=== PATIENT | female | born 1935 | race Caucasian/White ===

== ENCOUNTER 2022-03-12 07:06 | Day surgery (SDC) | payer OTHER ==
[~2022-03-12] VITALS: Ht 165.1 cm; Wt 72.1 kg
[~2022-03-12 07:06] MED LIST: CEFAZOLIN SOD 1 GM in D5W 50 ML IV ONE
[2022-03-12] MEDS ORDERED: NS 50 ML BAG IV ONE (10:40)
[2022-03-12] MEDS ORDERED: BUPIVACAINE /PF 0.5% 30 ML VIAL ONE (10:40)
[2022-03-12] MEDS ORDERED: PROPOFOL 200MG/ 20ML VIAL (DIPRIVAN) IV ONE (10:40)
[2022-03-12] MEDS ORDERED: ceFAZolin SODIUM 1 GM VIAL ONE (10:40)
[2022-03-12] MEDS ORDERED: MEPERIDINE 100 MG INJ. 100 MG/ML VIAL ONE (10:40)
[2022-03-12] MEDS ORDERED: SEVOFLURANE 15 MIN GAS INH ONE (10:40)
[2022-03-12] MEDS ORDERED: NS IRRIG SOLN 1000 ML IR ONE (10:40)
[2022-03-12] MEDS ORDERED: LR 1,000 ML IV.SOLN IV ONE (10:40)
[2022-03-12] MEDS ORDERED: fentaNYL CITRATE/PF 100 MCG/2 ML AMP ONE (10:40)
[2022-03-12] MEDS ORDERED: METOCLOPRAMIDE HCL 10 MG/2 ML VIAL ONE (10:40)
[2022-03-12] MEDS ORDERED: ISOSULFAN BLUE 5 ML VIAL (LYMPHAZURIN) ONE (10:40)
[2022-03-12] MEDS ORDERED: MEPERIDINE HCL/PF 25 MG/ML DISP.SYRIN IVP PRN (11:30)
[2022-03-12] MEDS ORDERED: ONDANSETRON HCL 4 MG/2 ML VIAL IVP PRN ×2 (11:30→12:45)
[2022-03-12] MEDS ORDERED: HYDROmorphone 1 MG/ML INJ. CARTRIDGE IVP PRN (11:30)
[2022-03-12] MEDS ORDERED: KETOROLAC TROMETHAMINE 30 MG VIAL IVP PRN (11:30)
[2022-03-12] MEDS ORDERED: LR 1,000 ML IV SCH (11:30)
[2022-03-12] MEDS ORDERED: METOCLOPRAMIDE HCL 10 MG/2 ML VIAL IVP PRN (11:30)
[2022-03-12] MEDS ORDERED: HYDROcodone/ACETAMIN 5-325 MG TAB (NORCO/ VICODIN) PO PRN ×2 (12:45)
[2022-03-12] MEDS ORDERED: ACETAMINOPHEN 325 MG TABLET PO PRN (12:45)
[2022-03-12] MEDS ORDERED: CEFAZOLIN 1 GM IVPB PREMIX 50 ML IV SCH ×2 (15:00→22:00)
[2022-03-12 15:07] VITALS: BP_SYST 115
[2022-03-12 15:45] VITALS: BP_SYST 115
[2022-03-12] MEDS: D5/0.45 NS 1,000 ML IV SCH ×2 (16:50→21:03)
[2022-03-12 20:20] VITALS: BP_SYST 137
[2022-03-12] MEDS: FAMOTIDINE PF 20 MG/2 ML VIAL IVP SCH (21:03)
[2022-03-13] VITALS: BP_SYST 110
[2022-03-13] MEDS ORDERED: APIX5TAB PO (05:38)
[2022-03-13] MEDS ORDERED: METO-540 (05:38)
[2022-03-13] MEDS ORDERED: LOVA10TA55 PO (05:38)
[2022-03-13] MEDS ORDERED: SPIRIVA INH (05:38)
[2022-03-13] MEDS ORDERED: LEVO50CA4 (05:38)
[2022-03-13] MEDS ORDERED: FURO-150 PO (05:38)
[2022-03-13] MEDS ORDERED: LOSA25TA3 PO (05:38)
[2022-03-13 08:19] VITALS: BP_SYST 118
[2022-03-13] MEDS: FAMOTIDINE PF 20 MG/2 ML VIAL IVP SCH (08:21)
[2022-03-13] MEDS: D5/0.45 NS 1,000 ML IV SCH (08:45)
[2022-03-13] MEDS ORDERED: ENOXAPARIN SODIUM 30 MG/0.3 ML SYRINGE SUBCUT SCH (09:00)
[2022-03-13 11:32] VITALS: BP_SYST 122
[2022-03-13 12:09] VITALS: BP_SYST 117
== END 2022-03-13 14:00 | disposition home or self-care (01) ==
LOC: SDS 07:06 → SMU 07:20 → STU 12:29 → SMU 14:46 → SDS 03-13 14:00
PROVIDERS: ATTEND Colon & Rectal Surgery
DX: C50.912 Malignant neoplasm of unspecified site of left female breast (principal); I25.10 Atherosclerotic heart disease of native coronary artery without angina pectoris; I48.91 Unspecified atrial fibrillation; I11.0 Hypertensive heart disease with heart failure; E78.5 Hyperlipidemia, unspecified; E03.9 Hypothyroidism, unspecified; I50.20 Unspecified systolic (congestive) heart failure; Z88.5 Allergy status to narcotic agent; Z79.01 Long term (current) use of anticoagulants; Z79.899 Other long term (current) drug therapy; Z20.822 Contact with and (suspected) exposure to COVID-19
CPT/HCPCS: 19301; 38525; 38792; 36415; 71046; 76098; 19281; 88305; 88307; 88333; 88341; 88342; 87426; A9541; J3490 ×3; J0690 ×2; J2765; J2704; J3010; J2175; Q9968; J7060; J7120; 78195; J1650

== ENCOUNTER 2022-03-18 18:28 | Inpatient (IN) | payer OTHER ==
[~2022-03-18] VITALS: Ht 165.1 cm; Wt 73.5 kg
[~2022-03-18 18:28] MED LIST changes: +APIX5TAB PO; -CEFAZOLIN SOD 1 GM in D5W 50 ML IV ONE; +FURO-150 PO; +LEVO50CA4; +LOSA25TA3 PO; +LOVA10TA55 PO; +METO-540; +SPIRIVA INH
[2022-03-18 18:37] VITALS: BP_SYST 121
--- NOTE | 2022-03-18 19:18 | NUR ---
Patient to ER bed 06 to gown for evaluation. Side rails up.
[2022-03-18] MEDS ORDERED: NACL 0.9% 1,000 ML IV ONE (19:45)
[2022-03-18] MEDS ORDERED: cefTRIAXone 1 GM in D5W 50 ML IV ONE (19:45)
[2022-03-18] MEDS ORDERED: VANCOMYCIN HCL 1,000 MG in NS 250 ML IV ONE (19:45)
[2022-03-18] MEDS ORDERED: VANCOMYCIN HCL 1000 MG/VIAL IV ONE (20:11)
[2022-03-18] MEDS ORDERED: cefTRIAXone 1 GM VIAL ONE (20:14)
[2022-03-18 20:30] LABS: BASOPHILS # (AUTO) 0.1 K/uL (0.0-0.2); BASOPHILS % (AUTO) 0.9 % (0.0-2.0); EOSINOPHILS # (AUTO) 0.1 K/uL (0.0-0.4); EOSINOPHILS % (AUTO) 0.9 % (0.0-4.0); HEMATOCRIT 41.1 % (36-48); HEMOGLOBIN 13.4 g/dL (12.0-16.0); LYMPHOCYTES # (AUTO) 1.3 K/uL (1.0-5.5); LYMPHOCYTES % (AUTO) 8.9 % (20.5-51.5); MEAN CORPUSCULAR HEMOGLOBIN 30 pg (27-31); MEAN CORPUSCULAR HGB CONC 33 % (32-36); MEAN CORPUSCULAR VOLUME 91 fL (79.0-98.0); MONOCYTES # (AUTO) 1.4 K/uL (0.0-1.0); MONOCYTES % (AUTO) 9.4 % (1.7-9.3); NEUTROPHILS # (AUTO) 11.6 K/uL (1.8-7.7); NEUTROPHILS % (AUTO) 79.9 % (40.0-70.0); PLATELET COUNT (AUTO) 245 K/uL (130-430); RED BLOOD CELL COUNT(AUTO) 4.52 MIL/uL (4.2-6.2); RED CELL DISTRIBUTION WIDTH 15.7 % (9.0-15.0); WHITE BLOOD COUNT (AUTO) 14.5 K/uL (4.8-10.8)
[2022-03-18 20:42] LABS: ANION GAP 10 (5-15); CHLORIDE 96 mmol/L (98-107); CREATININE 0.91 mg/dL (0.55-1.30); GLUCOSE 104 mg/dL (70-99); UREA NITROGEN, BLOOD 24 mg/dL (8-21)
[2022-03-18 20:46] LABS: ALANINE AMINOTRANSFERASE 13 U/L (12-78); ALBUMIN 3.2 g/dL (3.4-4.8); ASPARTATE AMINOTRANSFERASE 10 U/L (10-37)
--- NOTE | 2022-03-18 21:08 | NUR ---
sITUATED IN er 6. aao X4, RR even and unlabored. Had biopsy on L breast. C/o redness, swelling at site
--- NOTE | 2022-03-19 00:12 | NUR ---
Admit bed requested Patient will be admitted to care of Phyllis Fong Admitted to Med/Surg unit. Diagnosis Chest Wall Cellulitis Inpatient (Yes or No) Yes Observation (Yes or No) No Orientation concerns or request close to nursing station (Yes or No) No Covid Status Negative On vent or bipap No Isolation requirements No Needs a sitter No From Home (Yes or if No enter name of facility) Yes Requires Dialysis (Yes or No) No Med Rec Completed (Yes of No) No
--- NOTE | 2022-03-19 02:30 | NUR ---
ADMISSION NOTE Received patient from ER via nicole, received report from LILA Ball. Patient admitted with diagnosis CHEST WALL CELLULITIS. Patient oriented to hospital routine, call light, toileting and safety-patient verbalized understanding.
--- NOTE | 2022-03-19 02:30 | NUR ---
Patient will be admitted to care of . Admitted to medsurg unit. Will go to room 122A. Belongings list completed. Complete and up to date summary report printed. SBAR report given to LILA Cifuentes be given at bedside with opportunity for questions.
[2022-03-19 03:00] VITALS: BP_SYST 141
--- NOTE | 2022-03-19 03:00 | NUR ---
Initial RN notes Pt AAOx4, VSS, afebrile. No s/s distress noted. L. breast/axilla surgical wound photo taken, noted erythema, edematous, warm to touch, noted small dr yellow drainage. pt c/o pain with movement. Steritrips intact. Cleansed with NS, patted dry, covered with 4x4 gauze and paper tape. pt tolerated well. IV saline lock L. wrist 20G clear and patent. To monitor.
[2022-03-19 03:25] LABS: BILIRUBIN,URINE NEGATIVE (NEGATIVE); BLOOD, URINE 2+ (NEGATIVE); COLOR,URINE YELLOW (YELLOW); GLUCOSE,URINE NEGATIVE (NEGATIVE); KETONES,URINE TRACE (NEGATIVE); LEUKOCYTE ESTERASE ,URINE TRACE (NEGATIVE); NITRITE, URINE POSITIVE (NEGATIVE); PROTEIN URINE NEGATIVE (NEGATIVE); UROBILINOGEN,URINE 0.2 (0.2-1.0)
[2022-03-19 03:28] LABS: CLARITY/URINE SLIGHTLY CLOUDY (CLEAR)
[2022-03-19 03:29] LABS: BACTERIA,URINE MODERATE /HPF (None Seen)
--- NOTE | 2022-03-19 04:46 | NUR ---
Consultation Paged Reason for Consultation: Chest Wall Cellulitis Was consult called: Y Person who was notified: Yolanda Consulting Physician: Dr. López Ordering Physician: Víctor Fong
[2022-03-19] MEDS ORDERED: LIDOCAINE 1% 10 MG/ML, 20 ML MDV ONE (07:05)
[2022-03-19] MEDS ORDERED: PROPOFOL 200MG/ 20ML VIAL (DIPRIVAN) IV ONE (07:05)
[2022-03-19] MEDS ORDERED: SEVOFLURANE 15 MIN GAS INH ONE (07:05)
[2022-03-19] MEDS ORDERED: NS IRRIG SOLN 1000 ML IR ONE (07:05)
[2022-03-19] MEDS ORDERED: BUPIVACAINE /PF 0.25% 30 ML VIAL INJ ONE (07:05)
[2022-03-19] MEDS ORDERED: D5LR 1,000 ML IV.SOLN IV ONE (07:05)
[2022-03-19 12:00] LABS: INR 1.1 (0.8-1.2); PROTHROMBIN TIME 11.3 SECS (9.5-12.5)
[2022-03-19 12:07] VITALS: BP_SYST 165
[2022-03-19] MEDS ORDERED: ACETAMINOPHEN 500 MG TABLET PO PRN (15:00)
[2022-03-19] MEDS ORDERED: traMADol HCL HCL 50 MG TABLET (ULTRAM) PO PRN (15:00)
[2022-03-19] MEDS ORDERED: FUROSEMIDE 20 MG TABLET PO ONE (15:15)
[2022-03-19] MEDS ORDERED: NON-FORMULARY MEDICATION (Apixaban (Eliquis) 5 MG) PO SCH (15:15)
[2022-03-19] MEDS ORDERED: LOSARTAN POTASSIUM 25 MG TABLET PO ONE (15:15)
[2022-03-19] MEDS ORDERED: APIXABAN 2.5 MG TABLET PO ONE (15:15)
[2022-03-19] MEDS ORDERED: METOPROLOL SUCCINATE 25 MG TAB.SR.24H (TOPROL XL) PO ONE (15:15)
[2022-03-19 16:10] VITALS: BP_SYST 151
--- NOTE | 2022-03-19 18:30 | NUR ---
Miss Wallace has been assessed as indicated. She is pleasant and forgetful. She has had the US guided aspiration of the left breast. very little drainage was obtained. Dr Hidalgo was made aware. Culture sent to lab as requested. Miss Wallace tolerated the procedure well. She has continued to deny pain. Home meds were started for her. She has been visited by her daughter Shannan. She has spoken to her other daughters Windy and valente. Their phone number have been taped to her table so that she can access them. She is resting quietly with no s/s of distress or discomfort
--- NOTE | 2022-03-19 19:15 | NUR ---
Handoff given to Nancy
[2022-03-19] MEDS: IPRATROPIUM BROM 0.5 MG/2.5 ML VIAL.NEB (ATROVENT) INH SCH (19:31)
[2022-03-19 20:00] VITALS: BP_SYST 124
--- NOTE | 2022-03-19 20:00 | NUR ---
Received pt in bed. Pt awake and oriented but forgetful. c/c - left breast and axillary edema and pain. Pt ambulated with minimal assist.
[2022-03-19] MEDS ORDERED: NON-FORMULARY MEDICATION (Lovastatin 20 MG) PO SCH (21:00)
[2022-03-19] MEDS: APIXABAN 2.5 MG TABLET PO SCH (21:05)
[2022-03-19] MEDS: ATORVASTATIN 10 MG TABLET PO SCH (21:06)
[2022-03-19] MEDS: ceFAZolin SODIUM 2 GM in D5W 100 ML IV SCH (22:29)
[2022-03-20] MEDS: IPRATROPIUM BROM 0.5 MG/2.5 ML VIAL.NEB (ATROVENT) INH SCH ×4 (00:49→21:49)
[2022-03-20 04:45] VITALS: BP_SYST 107
[2022-03-20] MEDS: ceFAZolin SODIUM 2 GM in D5W 100 ML IV SCH ×3 (05:16→21:14)
--- NOTE | 2022-03-20 06:26 | NUR ---
S/P Left Lumpectomy with axillary ln dissection before adm. plane tender and red on the left breast and axillary. Pt denied any distress. on o2 2l/min via N/C. O2 Sat 91% on room air. Continent of urine. Given Ancef 2 g ivbp every 8hr as ordered.
[2022-03-20 06:30] LABS: BASOPHILS % (AUTO) 0.4 % (0.0-2.0); EOSINOPHILS # (AUTO) 0.2 K/uL (0.0-0.4); EOSINOPHILS % (AUTO) 1.7 % (0.0-4.0); HEMATOCRIT 33.4 % (36-48); HEMOGLOBIN 11.6 g/dL (12.0-16.0); LYMPHOCYTES # (AUTO) 0.8 K/uL (1.0-5.5); LYMPHOCYTES % (AUTO) 7.3 % (20.5-51.5); MEAN CORPUSCULAR HEMOGLOBIN 30 pg (27-31); MEAN CORPUSCULAR HGB CONC 35 % (32-36); MEAN CORPUSCULAR VOLUME 87 fL (79.0-98.0); MONOCYTES # (AUTO) 0.8 K/uL (0.0-1.0); MONOCYTES % (AUTO) 7.6 % (1.7-9.3); NEUTROPHILS # (AUTO) 8.8 K/uL (1.8-7.7); PLATELET COUNT (AUTO) 197 K/uL (130-430); RED BLOOD CELL COUNT(AUTO) 3.83 MIL/uL (4.2-6.2); RED CELL DISTRIBUTION WIDTH 15.6 % (9.0-15.0); WHITE BLOOD COUNT (AUTO) 10.5 K/uL (4.8-10.8)
[2022-03-20 07:07] LABS: ALANINE AMINOTRANSFERASE 10 U/L (12-78); ALBUMIN 2.3 g/dL (3.4-4.8); ANION GAP 9 (5-15); ASPARTATE AMINOTRANSFERASE 7 U/L (10-37); CALCIUM 8.4 mg/dL (8.4-11.0); CHLORIDE 101 mmol/L (98-107); CREATININE 0.62 mg/dL (0.55-1.30); GLUCOSE 113 mg/dL (70-99); TOTAL BILIRUBIN 0.8 mg/dL (0.0-1.0); UREA NITROGEN, BLOOD 8 mg/dL (8-21)
[2022-03-20] MEDS: METOPROLOL SUCCINATE 25 MG TAB.SR.24H (TOPROL XL) PO SCH (09:58)
[2022-03-20] MEDS: LOSARTAN POTASSIUM 25 MG TABLET PO SCH (09:58)
[2022-03-20] MEDS: FUROSEMIDE 20 MG TABLET PO SCH (09:59)
[2022-03-20] MEDS: APIXABAN 2.5 MG TABLET PO SCH ×2 (10:00→20:51)
[2022-03-20 12:31] VITALS: BP_SYST 100
[2022-03-20] MEDS ORDERED: KCL 20 mEq in 100 mL (PREMIX) 100 ML IV ONE (13:00)
[2022-03-20] MEDS ORDERED: POTASSIUM CHLORIDE 20 MEQ/PKT PACKET PO ONE (13:00)
[2022-03-20] MEDS: guaiFENesin 200 MG/10 ML UDC PO PRN (13:47)
[2022-03-20 17:21] VITALS: BP_SYST 101
--- NOTE | 2022-03-20 18:45 | NUR ---
Miss Wallace has been assessed as indicated. She continues to deny pain. Potassium level was low this AM and was replaced. She has been visited by 2 of her daughters thus far today. She has a wheeze and is receiving nebulizers. She is receiving IV antibiotics as ordered by . She is resting quietly at this time
--- NOTE | 2022-03-20 19:00 | NUR ---
RECEIVED PT IN BED.AOX4.ON RA.NOT IN RESPIRATORY DISTRESS NOTED AT THIS TIME.NO COMPLAINT OF PAIN NOTED.IV R HAND G 22, PATENT AND INTACT.UPDATED ON POC FOR THE EVENING.INSTRUCTED TO USE THE CALL LIGHT FOR ASSISTANCE.BED IN LOWEST POSITION.BEDSIDE TABLE AND CALL LIGHT ARE WITHIN REACH.
[2022-03-20 20:00] VITALS: BP_SYST 103
[2022-03-20] MEDS: ATORVASTATIN 10 MG TABLET PO SCH (20:51)
[2022-03-21] VITALS: BP_SYST 116
--- NOTE | 2022-03-21 | NUR ---
ROUNDS MADE.PT IS ASLEEP.NOT IN RESPIRATORY DISTRESS NOTED.
--- NOTE | 2022-03-21 04:37 | NUR ---
ASSISTED PT TO THE RESTROOM.KEPT PT CLEAN AND DRY.PT IS NOT IN RESPIRATORY DISTRESS NOTED.
[2022-03-21] MEDS: ceFAZolin SODIUM 2 GM in D5W 100 ML IV SCH (05:32)
[2022-03-21] MEDS: IPRATROPIUM BROM 0.5 MG/2.5 ML VIAL.NEB (ATROVENT) INH SCH ×4 (05:44→19:50)
--- NOTE | 2022-03-21 07:20 | NUR ---
OPENING NOTE Received report from LILA Dominique. Upon entering room, patient is awake and oriented x4. She denies pain or discomfort at this time. IV sites x2 visualized as intact. Call light within reach. Safety precautions observed.
[2022-03-21 08:15] VITALS: BP_SYST 124
[2022-03-21] MEDS: METOPROLOL SUCCINATE 25 MG TAB.SR.24H (TOPROL XL) PO SCH (10:45)
[2022-03-21] MEDS: FUROSEMIDE 20 MG TABLET PO SCH (10:46)
[2022-03-21] MEDS: LOSARTAN POTASSIUM 25 MG TABLET PO SCH (10:46)
[2022-03-21] MEDS: APIXABAN 2.5 MG TABLET PO SCH ×2 (10:48→21:53)
[2022-03-21 11:15] VITALS: BP_SYST 127
[2022-03-21] MEDS: ERTAPENEM SODIUM 1 GM in NS 50 ML IV SCH (12:43)
[2022-03-21] MEDS: guaiFENesin 200 MG/10 ML UDC PO PRN (12:54)
[2022-03-21] MEDS ORDERED: ERTA1VIA3 INJ (14:29)
--- NOTE | 2022-03-21 14:42 | NUR ---
SURGERY ROUNDS Dr. Hidalgo at bedside. Orders received.
[2022-03-21 16:15] VITALS: BP_SYST 120
--- NOTE | 2022-03-21 17:14 | NUR ---
NPO AFTER MIDNIGHT Per Dr. Hidalgo. I&D scheduled for tomorrow morning.
--- NOTE | 2022-03-21 18:28 | NUR ---
CLOSING NOTE Patient sitting up in bed, alert & oriented x4. She denies pain or discomfort at this time. IV site intact and saline locked. Call light within reach. Safety precautions observed. Will endorse care to oncoming RN.
--- NOTE | 2022-03-21 19:10 | NUR ---
Patient in bed, alert & oriented x4. denies any pain or discomfort at this time. RFA and R wrist saline locked. Call light within reach. Instructed to call for assist when needed, will continue with care plan
[2022-03-21 19:15] VITALS: BP_SYST 129
[2022-03-21] MEDS: ATORVASTATIN 10 MG TABLET PO SCH (21:54)
[2022-03-22 00:23] VITALS: BP_SYST 128
[2022-03-22] MEDS: IPRATROPIUM BROM 0.5 MG/2.5 ML VIAL.NEB (ATROVENT) INH SCH ×4 (01:00→20:24)
--- NOTE | 2022-03-22 07:02 | NUR ---
Patient in bed, alert & oriented x4. denies any pain or discomfort at this time. RFA and R wrist saline locked. NPO from [place], ASAFETY PREC. MAINTAINED DURING SHIFT, VOIDING W/O DIFFICULTY, Call light within reach. OR checklist completed by the bedside, left unit at 7am for procedure, will endorse to incoming RN
--- NOTE | 2022-03-22 07:48 | NUR ---
The pt is off the unit in surgery for I&D per entertainment agent report the pt was stable at that time. I will evaluate upon return.
[2022-03-22] MEDS ORDERED: METOCLOPRAMIDE HCL 10 MG/2 ML VIAL IVP PRN (08:00)
[2022-03-22] MEDS ORDERED: ONDANSETRON HCL 4 MG/2 ML VIAL IVP PRN (08:00)
[2022-03-22] MEDS ORDERED: MORPHINE 4 MG INJ. 4 MG/ML VIAL IVP PRN (08:00)
[2022-03-22 09:02] VITALS: BP_SYST 130
[2022-03-22] MEDS: METOPROLOL SUCCINATE 25 MG TAB.SR.24H (TOPROL XL) PO SCH (10:04)
[2022-03-22] MEDS: guaiFENesin 200 MG/10 ML UDC PO PRN (10:04)
[2022-03-22] MEDS: FUROSEMIDE 20 MG TABLET PO SCH (10:05)
[2022-03-22] MEDS: LOSARTAN POTASSIUM 25 MG TABLET PO SCH (10:05)
[2022-03-22] MEDS: APIXABAN 2.5 MG TABLET PO SCH ×2 (10:06→21:49)
[2022-03-22 10:10] VITALS: BP_SYST 107
[2022-03-22 12:00] VITALS: BP_SYST 110
--- NOTE | 2022-03-22 13:08 | NUR ---
I have just spoken with Haily Rogers CM and she reported that the home health has been arranged but will call me back with information about the infusion center after she obtains a schedule. Pt will be discharged when all had been verified and arranged.
[2022-03-22] MEDS: ERTAPENEM SODIUM 1 GM in NS 50 ML IV SCH (13:25)
[2022-03-22 16:54] VITALS: BP_SYST 120
[2022-03-22 19:08] VITALS: BP_SYST 113
--- NOTE | 2022-03-22 19:10 | NUR ---
Patient in bed, alert & oriented x4. Eating in bed, denies any pain or discomfort at this time. RFA and R wrist saline locked. Low bed. Call light within reach. L breast with dsg, intact. Instructed to call for assist when needed, will continue with care plan
--- NOTE | 2022-03-22 19:13 | NUR ---
I assisted the pt to the BRP with walker earlier and pt experienced significant dizziness that initially resolved but returned while urinating. She reports she feels more comfortable leaving on tomorrow. Her left axillary/breast incision is oozing and pt reported she was wet. I attempted to change dressing but she requested to have dinner first. I will endorse to the next shift.
[2022-03-22] MEDS: ATORVASTATIN 10 MG TABLET PO SCH (21:53)
[2022-03-23] VITALS: BP_SYST 121
[2022-03-23] MEDS: IPRATROPIUM BROM 0.5 MG/2.5 ML VIAL.NEB (ATROVENT) INH SCH ×3 (01:00→12:01)
--- NOTE | 2022-03-23 06:42 | NUR ---
Patient in bed, alert & oriented x4, denies any pain or discomfort at this time, denied dizziness. RFA and R wrist saline locked. L breast dressing change done, moderate oozing, pt cleaned up and gown and bed linen changed, Low bed. Call light within reach. Pt on BRP, using walker which is by the bedside . Instructed to call for assist when needed, will endorse to incoming RN
[2022-03-23 07:31] VITALS: BP_SYST 131
--- NOTE | 2022-03-23 08:02 | NUR ---
Pt's sats while lying in bed were 90% but with deep breathing excercises it returned to 92%. She was also assisted her to the BR but she initially had dizziness while sitting that resolved fairly quickly. BP was 126/47 and HR 79. She has been placed in the chair for breakfast. Pt is being prepared for possible DC this am.
[2022-03-23] MEDS: FUROSEMIDE 20 MG TABLET PO SCH (08:55)
[2022-03-23] MEDS: APIXABAN 2.5 MG TABLET PO SCH (08:55)
[2022-03-23] MEDS: LOSARTAN POTASSIUM 25 MG TABLET PO SCH (08:56)
[2022-03-23] MEDS: METOPROLOL SUCCINATE 25 MG TAB.SR.24H (TOPROL XL) PO SCH (08:56)
[2022-03-23] MEDS: ERTAPENEM SODIUM 1 GM in NS 50 ML IV SCH (08:57)
--- NOTE | 2022-03-23 09:23 | NUR ---
Pt's IV was leaking upon flush so new PIV started to the LAC 22G and Invanz dose provided early. Pt has scheduled infusion center and would have missed appt today d/t to hospitalization. Pt will be discharged and transportation arranged after.
[2022-03-23 11:03] VITALS: BP_SYST 131
--- NOTE | 2022-03-23 11:33 | NUR ---
PATIENT REFUSED PT TREATMENT TODAY PATIENT STATES SHE IS GETTING D/C TODAY. ENCOURAGEMENT GIVEN FOR PARTICIPATION HOWEVER PATIENT REPORTS FEELING FATIGUE AND WANTS TO JUST GO HOME.
--- NOTE | 2022-03-23 11:40 | NUR ---
Pt's daughter is scheduled to arrive at 1200 for discharge with clothing. Pt requests to complete instruction when daughter is at bedside.
--- NOTE | 2022-03-23 13:02 | NUR ---
D/C Patient Patient given medication reconciliation form and D/C instructions. Exit Care provided. Patient and daughter Kathy verbalized understanding. MD discussed with patient the results and treatment provided. Ambulatory with assist for discharge to home. Patient in stable condition, ID band removed. IV catheter removed, intact and dressing applied, no active bleeding. The left axilla dressing C/D/I. No new rx given. Pt has been informed and provided the home health and infusion center info. Patient educated on pain management. All belongings sent with patient.Pt taken to the front entry way via W/C and assisted into private vehicle. Pt stable at time of DC.
--- NOTE | 2022-03-23 14:31 | NUR ---
patient discharge home. will complete IV abx as outpt OP Infusion center at Dr. Fatima [address] [place] [address] [phone] scheduled for 10:00am Ivanz 1 gm IV daily x 7 days Patient will need to set up PDV follow up with surgeon has beed requested [facility] will call with date and time
--- NOTE | 2022-03-23 16:04 | NUR ---
PHYSICAL THERAPY CO-SIGN The Physical Therapy Progress Notes documented by Staffing Rn have been reviewed. Reviewed/Co-Signed by: Antelmo Skelton Documentation Done by:NEAL PAREDES Addendum: 03/23/22 at 1605 by Antelmo Skelton PT Amended: Links added.
== END 2022-03-23 12:55 | disposition home or self-care (01) | DRG 862 ==
LOC: SED 18:28 → SMU 03-19 00:07
PROVIDERS: ADMIT Internal Medicine; ATTEND Internal Medicine
PROC: 0X953ZX Drainage of Left Axilla, Percutaneous Approach, Diagnostic (ICD-10-PCS; 2022-03-22)
PROC: 0X9500Z Drainage of Left Axilla with Drainage Device, Open Approach (ICD-10-PCS; principal; 2022-03-22 07:06)
DX: T81.49XA Infection following a procedure, other surgical site, initial encounter (principal); A41.9 Sepsis, unspecified organism; N39.0 Urinary tract infection, site not specified; L02.412 Cutaneous abscess of left axilla; I48.91 Unspecified atrial fibrillation; Y83.8 Other surgical procedures as the cause of abnormal reaction of the patient, or of later complication, without mention of misadventure at the time of the procedure; Z20.822 Contact with and (suspected) exposure to COVID-19; Z85.3 Personal history of malignant neoplasm of breast; Z79.01 Long term (current) use of anticoagulants; Z88.5 Allergy status to narcotic agent; Z79.899 Other long term (current) drug therapy; Z79.84 Long term (current) use of oral hypoglycemic drugs; Y92.89 Other specified places as the place of occurrence of the external cause
CPT/HCPCS: 36415; 71045; 80053; 81000; 83605; 85025; 85610-TC; 85730-TC; 87040; 87070-TC; 87075-TC; 87081; 87086; 87101; 87186-TC; 93005; 94010; 94640; 94760; 97116-GP; 97530-GP; 99285; J0696; J1335; J2001; J2704; J3370; J3480; J3490; J7060; J7120